=== PATIENT | female | born 1980 | race Caucasian/White ===

== ENCOUNTER 2019-09-22 05:15 | Day surgery (SDC) | payer OTHER ==
[~2019-09-22] VITALS: Ht 165.1 cm; Wt 74.9 kg
[2019-09-22 06:05] VITALS: BP 107/75
[2019-09-22] MEDS ORDERED: BUSP10TA PO (06:05)
[2019-09-22] MEDS ORDERED: SERT50TA PO (06:05)
[2019-09-22] MEDS ORDERED: HYDR-826 PO (06:05)
[2019-09-22] MEDS ORDERED: LACTATED RINGERS 1,000 ML IV SCH (06:05)
[2019-09-22] MEDS ORDERED: ACETAMINOPHEN 500 MG TABLET ONE (06:38)
[2019-09-22] MEDS ORDERED: GABAPENTIN 300 MG CAPSULE ONE (06:39)
[2019-09-22] MEDS ORDERED: FENTANYL PF 250 MCG/5ML ONE (06:44)
[2019-09-22 06:58] LABS: HCG UR SG 1.021 (1.003-1.030); MICROSCOPIC AUTO
[2019-09-22 06:59] LABS: CULTURE INDICATED? NO
[2019-09-22] MEDS ORDERED: HALOPERIDOL 5 MG/ML IV PRN (07:00)
[2019-09-22] MEDS ORDERED: LABETALOL 5MG/ML, 20ML IV PRN (07:00)
[2019-09-22] MEDS ORDERED: OXYcodone 5 MG/5 ML ORAL.SOL UDC PO PRN (07:00)
[2019-09-22] MEDS ORDERED: ACETAMINOPHEN 500 MG TABLET PO ONE (07:00)
[2019-09-22] MEDS ORDERED: HYDROmorphone 2 MG/ML, 1ML IVPush PRN (07:00)
[2019-09-22] MEDS ORDERED: MEPERIDINE/PF 25MG/ML,1ML IVPush PRN (07:00)
[2019-09-22] MEDS ORDERED: GABAPENTIN 300 MG CAPSULE PO ONE (07:00)
[2019-09-22] MEDS ORDERED: hydrALAzine 20 MG/ML, 1ML IV PRN (07:00)
[2019-09-22] MEDS ORDERED: PROMETHAZINE 25 MG/ML, 1ML IV PRN (07:00)
[2019-09-22] MEDS ORDERED: ROCURONIUM 10MG/ML,5ML ONE (07:48)
[2019-09-22] MEDS ORDERED: ONDANSETRON 2MG/ML, 2ML ONE (07:48)
[2019-09-22] MEDS ORDERED: GLYCOPYRROLATE 0.2MG/1ML, 5ML ONE (07:48)
[2019-09-22] MEDS ORDERED: PROPOFOL 10 MG/ML, 20ML ONE (07:48)
[2019-09-22] MEDS ORDERED: DEXAMETHASONE 4 MG/ML, 1ML ONE (07:48)
[2019-09-22] MEDS ORDERED: CEFAZOLIN 1,000 MG ONE (07:48)
[2019-09-22] MEDS ORDERED: SUCCINYLCHOLINE 20 MG/ML, 10ML ONE (07:48)
[2019-09-22] MEDS ORDERED: NEOSTIGMINE 1 MG/ML, 10ML ONE (07:48)
[2019-09-22] MEDS ORDERED: KETOROLAC 30 MG/1 ML IV PRN (08:00)
[2019-09-22] MEDS ORDERED: OXYcodone/APAP 5/325MG TABLET PO PRN (08:00)
[2019-09-22] MEDS ORDERED: ONDANSETRON 2MG/ML, 2ML IV PRN (08:00)
[2019-09-22] MEDS ORDERED: FENTANYL PF 100 MCG/2ML ONE (08:04)
[2019-09-22] MEDS ORDERED: KETOROLAC 30 MG/1 ML ONE (08:04)
[2019-09-22] MEDS: FENTANYL PF 100 MCG/2ML IV PRN ×2 (08:05→08:18)
[2019-09-22] MEDS ORDERED: OXYcodone 5 MG/5 ML ORAL.SOL UDC ONE (08:20)
[2019-09-22] MEDS ORDERED: PHENAZOPYRIDINE 200 MG TABLET PO PRN (10:25)
[2019-09-22] MEDS ORDERED: HYDROmorphone 1 MG/ML, 1ML INJ IV ONE (10:30)
[2019-09-22] MEDS ORDERED: OXYBUTYNIN CHLORIDE 5 MG TABLET PO SCH (10:30)
== END 2019-09-22 12:10 | disposition home or self-care (01) ==
LOC: OUT 05:15
PROVIDERS: ATTEND Urology
DX: N20.1 Calculus of ureter (principal); F17.210 Nicotine dependence, cigarettes, uncomplicated; F41.9 Anxiety disorder, unspecified; F32.9 Major depressive disorder, single episode, unspecified
CPT/HCPCS: 52356; 74420; 81001; 81025; 82360; 88300; C2617; J0330; J0690; J1100; J1170; J1885; J2405; J2704; J3010; J7120; J2710